=== PATIENT | female | born 1945 | race Two or more races ===

== ENCOUNTER 2023-01-23 16:18 | Emergency (ER) | payer MEDICARE ==
[~2023-01-23] VITALS: Ht 162.6 cm; Wt 59.0 kg
[2023-01-23] MEDS ORDERED: ACET-2605 PO (16:59)
[2023-01-23] MEDS ORDERED: CA C1TAB98 PO (16:59)
[2023-01-23] MEDS ORDERED: CYAN-51 PO (16:59)
[2023-01-23] MEDS ORDERED: CANNABIDIOL PO (16:59)
[2023-01-23] MEDS ORDERED: CALM GUMMIES PO (16:59)
[2023-01-23] MEDS ORDERED: CHOL100043 PO (16:59)
[2023-01-23] MEDS ORDERED: [UNRECOGNIZED DRUG - OTHER] PO (16:59)
[2023-01-23] MEDS ORDERED: ACET-868 PO (16:59)
[2023-01-23] MEDS ORDERED: ESCI5TAB PO (16:59)
[2023-01-23 17:45] LABS: BASOPHILS % (AUTO) 0.7 % (0.0-2.0); EOSINOPHILS # (AUTO) 0.1 K/uL (0.0-0.7); EOSINOPHILS % (AUTO) 1.9 % (0.0-6.0); HEMATOCRIT 39 % (33-45); HEMOGLOBIN 12.7 g/dL (11.5-14.8); LYMPHOCYTES % (AUTO) 32.4 % (20.0-44.0); MEAN CORPUSCULAR HEMOGLOBIN 30 PG (26.0-33.0); MEAN CORPUSCULAR HGB CONC 33 g/dl (31.0-36.0); MEAN CORPUSCULAR VOLUME 91 fL (82-100); MONOCYTES # (AUTO) 0.6 K/uL (0.1-1.30); MONOCYTES % (AUTO) 8.9 % (2.0-12.0); NEUTROPHILS # (AUTO) 3.5 K/uL (1.8-8.9); NEUTROPHILS % (AUTO) 56.1 % (43.0-81.0); PLATELET COUNT (AUTO) 289 K/uL (150-450); RED BLOOD CELL COUNT(AUTO) 4.32 MIL/uL (4.0-5.2); RED CELL DISTRIBUTION WIDTH 13.8 % (11.5-15.0); WHITE BLOOD COUNT (AUTO) 6.2 K/uL (4.3-11.0)
[2023-01-23] MEDS ORDERED: OLANZAPINE 10 MG VIAL IM ONE ×2 (17:56→18:00)
[2023-01-23 18:01] LABS: ALANINE AMINOTRANSFERASE 14 U/L (12-78); ALBUMIN 4.2 g/dL (3.4-5.0); ALCOHOL, BLOOD 3 mg/dL (0-10); ALKALINE PHOSPHATASE 65 U/L (46-116); ASPARTATE AMINOTRANSFERASE 21 U/L (15-37); BILIRUBIN,DIRECT 0.1 mg/dL (0.0-0.2); BILIRUBIN,TOTAL 0.6 mg/dL (0.2-1.0); CALCIUM, SERUM 9.9 mg/dL (8.5-10.1); CARBON DIOXIDE 25 mmol/L (21-32); CHLORIDE 105 mmol/L (98-107); CREATININE 0.6 mg/dL (0.6-1.3); GLUCOSE 85 mg/dL (74-106); POTASSIUM 4.1 mmol/L (3.5-5.1); SODIUM SERUM 142 mmol/L (136-145); TOTAL PROTEIN, SERUM 8.1 g/dL (6.4-8.2); UREA NITROGEN, BLOOD 9 mg/dL (7-18)
[2023-01-23 18:01] LABS: APPEARANCE,URINE CLEAR (CLEAR); BILIRUBIN,URINE NEGATIVE (NEGATIVE); BLOOD, URINE NEGATIVE Ery/uL (NEGATIVE); COLOR,URINE YELLOW (YELLOW); KETONES,URINE 1+ mg/dL (NEGATIVE); LEUKOCYTE ESTERASE ,URINE NEGATIVE (NEGATIVE); NITRITE, URINE NEGATIVE (NEGATIVE); PH,URINE 7.5 (5.0-8.0); PROTEIN,URINE NEGATIVE (NEGATIVE); UGLUCOSE NEGATIVE (NEGATIVE); UROBILINOGEN,URINE 0.2 EU/dL (0.2)
[2023-01-23 18:02] LABS: ACETAMINOPHEN <10 ug/ml (10-30); SALICYLATE < 2.3 mg/dL (2.8-20.0)
[2023-01-23 18:11] LABS: AMPHETAMINE, URINE NEGATIVE (NEGATIVE); BARBITURATE, URINE NEGATIVE (NEGATIVE); BENZODIAZEPINE, URINE NEGATIVE (NEGATIVE); CANNABINOID, URINE NEGATIVE (NEGATIVE); COCCAINE, URINE NEGATIVE (NEGATIVE); OPIATE, URINE NEGATIVE (NEGATIVE); PHENCYCLIDINE SCREEN,URINE NEGATIVE (NEGATIVE)
[2023-01-23 18:27] LABS: ADD URINE CULTURE NO; BACTERIA,URINE None seen /HPF (None Seen); RBC,URINE 0-2 /HPF (0-2); SQUAMOUS EPITHELIAL CELL,UR 0-2 /HPF (None Seen); URINE AMORPHOUS PHOSPHATES Few /HPF (None Seen); WBC,URINE 0-2 /HPF (0-3)
[2023-01-23 22:59] VITALS: BP 130/60; TEMP 97.3; O2SAT 98
== END 2023-01-23 23:03 ==
LOC: ER 16:36
DX: R45.1 Restlessness and agitation (principal); F03.90 Unspecified dementia, unspecified severity, without behavioral disturbance, psychotic disturbance, mood disturbance, and anxiety; Z20.822 Contact with and (suspected) exposure to COVID-19
CPT/HCPCS: 99291; 96372; 85025; 80048; 80076; 81001; 36415; 80143; 80320; 80307; J3490; G0480

== ENCOUNTER 2024-01-27 13:46 | Inpatient (IN) | payer MEDICARE ==
[~2024-01-27] VITALS: Ht 165.1 cm; Wt 54.4 kg
[~2024-01-27 13:46] MED LIST: ACET-2605 PO; ACET-868 PO; CA C1TAB98 PO; CALM GUMMIES PO; CANNABIDIOL PO; CHOL100043 PO; CYAN-51 PO; ESCI5TAB PO; [UNRECOGNIZED DRUG - OTHER] PO
[2024-01-27] MEDS ORDERED: OLANZAPINE 10 MG VIAL IM ONE (13:56)
[2024-01-27] MEDS ORDERED: LORAZEPAM INJ 2 MG/ML VIAL ONE (13:56)
[2024-01-27] MEDS: LORAZEPAM INJ 2 MG/ML VIAL IM ONE (14:12)
[2024-01-27] MEDS: OLANZAPINE 10 MG VIAL IM ONE (14:12)
[2024-01-27] MEDS ORDERED: MAG30ORA PO (14:42)
[2024-01-27] MEDS ORDERED: LOPE2CAP40 PO (14:42)
[2024-01-27] MEDS ORDERED: [UNRECOGNIZED DRUG - REMARK] PO (14:42)
[2024-01-27] MEDS ORDERED: [UNRECOGNIZED DRUG - OTHER] PO (14:42)
[2024-01-27] MEDS ORDERED: CLON0.122 PO (14:42)
[2024-01-27] MEDS ORDERED: MAGN400O6 PO (14:42)
[2024-01-27] MEDS ORDERED: GABA-532 PO (14:42)
[2024-01-27] MEDS ORDERED: BISA10SU11 RC (14:42)
[2024-01-27 15:38] VITALS: O2SAT 98
[2024-01-27 15:39] LABS: BASOPHILS % (AUTO) 0.8 % (0.0-2.0); EOSINOPHILS # (AUTO) 0.1 K/uL (0.0-0.7); EOSINOPHILS % (AUTO) 1.4 % (0.0-6.0); HEMATOCRIT 31 % (33-45); HEMOGLOBIN 9.8 g/dL (11.5-14.8); LYMPHOCYTES # (AUTO) 1.6 K/uL (0.8-4.8); LYMPHOCYTES % (AUTO) 26.4 % (20.0-44.0); MEAN CORPUSCULAR HEMOGLOBIN 30 PG (26.0-33.0); MEAN CORPUSCULAR HGB CONC 32 g/dl (31.0-36.0); MEAN CORPUSCULAR VOLUME 94 fL (82-100); MONOCYTES # (AUTO) 0.6 K/uL (0.1-1.30); MONOCYTES % (AUTO) 10.4 % (2.0-12.0); NEUTROPHILS # (AUTO) 3.7 K/uL (1.8-8.9); PLATELET COUNT (AUTO) 282 K/uL (150-450); RED BLOOD CELL COUNT(AUTO) 3.26 MIL/uL (4.0-5.2); RED CELL DISTRIBUTION WIDTH 15.3 % (11.5-15.0); WHITE BLOOD COUNT (AUTO) 6.1 K/uL (4.3-11.0)
[2024-01-27 15:48] LABS: APPEARANCE,URINE CLEAR (CLEAR); BILIRUBIN,URINE NEGATIVE (NEGATIVE); BLOOD, URINE NEGATIVE Ery/uL (NEGATIVE); COLOR,URINE YELLOW (YELLOW); KETONES,URINE NEGATIVE (NEGATIVE); LEUKOCYTE ESTERASE ,URINE NEGATIVE (NEGATIVE); NITRITE, URINE NEGATIVE (NEGATIVE); PH,URINE 6.5 (5.0-8.0); PROTEIN,URINE 1+ mg/dl (NEGATIVE); UGLUCOSE NEGATIVE (NEGATIVE); UROBILINOGEN,URINE 0.2 EU/dL (0.2)
[2024-01-27 16:01] LABS: ADD URINE CULTURE YES; BACTERIA,URINE 1+ /HPF (None Seen); MUCUS,URINE Few /LPF (None Seen); SQUAMOUS EPITHELIAL CELL,UR 0-2 /HPF (None Seen)
[2024-01-27 16:04] LABS: AMPHETAMINE, URINE NEGATIVE (NEGATIVE); BARBITURATE, URINE NEGATIVE (NEGATIVE); BENZODIAZEPINE, URINE NEGATIVE (NEGATIVE); COCCAINE, URINE NEGATIVE (NEGATIVE); OPIATE, URINE NEGATIVE (NEGATIVE); PHENCYCLIDINE SCREEN,URINE NEGATIVE (NEGATIVE)
[2024-01-27 16:05] LABS: CANNABINOID, URINE POSITIVE (NEGATIVE)
[2024-01-27 16:07] LABS: CALCIUM, SERUM 8.9 mg/dL (8.5-10.1); CARBON DIOXIDE 27 mmol/L (21-32); CHLORIDE 106 mmol/L (98-107); CREATININE 0.7 mg/dL (0.6-1.3); GLUCOSE 103 mg/dL (74-106); SODIUM SERUM 142 mmol/L (136-145); UREA NITROGEN, BLOOD 20 mg/dL (7-18)
[2024-01-27 16:17] LABS: ALANINE AMINOTRANSFERASE 30 U/L (12-78); ALBUMIN 3.6 g/dL (3.4-5.0); ALKALINE PHOSPHATASE 92 U/L (46-116); ASPARTATE AMINOTRANSFERASE 31 U/L (15-37); BILIRUBIN,TOTAL 0.1 mg/dL (0.2-1.0); TOTAL PROTEIN, SERUM 6.9 g/dL (6.4-8.2)
[2024-01-27 16:20] LABS: ACETAMINOPHEN 0 ug/ml (10-30); ALCOHOL, BLOOD < 3 mg/dL (0-10); SALICYLATE 1.8 mg/dL (2.8-20.0)
[2024-01-27] MEDS: CEPHALEXIN MONOHYDRATE 500 MG CAPSULE PO ONE (16:30)
[2024-01-27] MEDS ORDERED: ACETAMINOPHEN 325 MG TABLET PO PRN (17:30)
[2024-01-27] MEDS ORDERED: MAG HYDROX/AL HYDROX/SIMETH 30 ML UDC PO PRN (17:30)
[2024-01-27] MEDS ORDERED: MAGNESIUM HYDROXIDE 30 ML UDC PO PRN (17:30)
[2024-01-27] MEDS ORDERED: CEPHALEXIN MONOHYDRATE 500 MG CAPSULE PO ONE (17:40)
[2024-01-27] MEDS: BLOOD SUGAR DIAGNOSTIC 1 EACH STRIP IN ONE (18:05)
[2024-01-27] MEDS: LORAZEPAM 1 MG TABLET PO ONE (18:27)
[2024-01-27 20:00] VITALS: BP 118/96; TEMP 98.3; O2SAT 97
[2024-01-27] MEDS: ZOLPIDEM TARTRATE 5 MG TABLET PO ONE (22:10)
[2024-01-28 08:00] VITALS: BP 96/67; TEMP 98.7; O2SAT 96
[2024-01-28] MEDS: GABAPENTIN 100 MG CAPSULE PO SCH ×2 (08:39→12:28)
[2024-01-28] MEDS ORDERED: ZOLPIDEM TARTRATE 5 MG TABLET PO PRN (09:30)
[2024-01-28] MEDS ORDERED: hydrOXYzine PAMOATE 25 MG CAPSULE PO PRN (09:30)
[2024-01-28] MEDS: OLANZAPINE 10 MG VIAL IM ONE (12:35)
[2024-01-28] MEDS: CEPHALEXIN MONOHYDRATE 500 MG CAPSULE PO SCH (13:00)
[2024-01-28] MEDS: clonazePAM 0.5 MG TABLET PO SCH (17:00)
[2024-01-28 21:08] VITALS: BP 109/70; TEMP 98; O2SAT 98
[2024-01-29] MEDS ORDERED: Z GUARD REMEDY 4 OZ OINT TP PRN (07:30)
[2024-01-29] MEDS: OLANZAPINE 10 MG VIAL IM ONE (07:31)
[2024-01-29] MEDS: Z GUARD REMEDY 4 OZ OINT TP SCH (09:42)
[2024-01-29] MEDS: NYSTATIN (PYXIS) 500,000 UNIT/5 ML ORAL.SUSP PO SCH (13:00)
[2024-01-29 22:00] VITALS: BP 115/68; TEMP 98; O2SAT 98
[2024-01-30] MEDS: OLANZAPINE 10 MG VIAL IM ONE (10:46)
== END 2024-01-30 11:15 | DRG 885 ==
LOC: ER 13:50 → GPS 17:06
PROVIDERS: ADMIT Psychiatry & Neurology Psychiatry; ATTEND Nurse Practitioner Family
DX: F39 Unspecified mood [affective] disorder (principal); F03.92 Unspecified dementia, unspecified severity, with psychotic disturbance; G93.49 Other encephalopathy; N39.0 Urinary tract infection, site not specified; F03.93 Unspecified dementia, unspecified severity, with mood disturbance; F29 Unspecified psychosis not due to a substance or known physiological condition; D63.8 Anemia in other chronic diseases classified elsewhere; E86.0 Dehydration; Z79.899 Other long term (current) drug therapy; Z20.822 Contact with and (suspected) exposure to COVID-19; R73.9 Hyperglycemia, unspecified; G62.9 Polyneuropathy, unspecified; B96.89 Other specified bacterial agents as the cause of diseases classified elsewhere
CPT/HCPCS: 36415; 80048-TC; 80076-TC; 81001; 82962-TC; 85025-TC; 87086-TC; 97110-TC; G0480; J2060; J3490